=== PATIENT | female | born 1990 | race American Indian/Alaskan Native ===

== ENCOUNTER 2016-11-06 22:46 | Emergency (ER) | payer MEDICAID ==
[2016-11-07] MEDS ORDERED: MOTRIN PO ONE (04:18)
--- NOTE | 2016-11-07 04:19 | Emergency Department Report ---
- General Chief Complaint: Laceration/Recheck/Suture Stated Complaint: RT FOOT STEPPED ON GLASS Time Seen by Provider: 11/07/16 04:08 Source: patient Mode of arrival: Ambulatory Limitations: No Limitations - History of Present Illness Initial Comments: This is a 26-year-old female well-nourished with nontoxic or ill in appearance that presents with a laceration to the right plantar foot status post stepping on a broken glass that occurred yesterday at 8 PM. Patient stated after that her current estimate on glass she cleaned the area with iodine and wrapped her foot and dressing. Patient and her boyfriend took the whole glass particle out of her foot and stated that the glass is able to get put back together. Patient denies any foreign body objects to her right foot. Patient stated minimal bleeding. Denies any numbness, tingling, unable to move her extremities , fever, chills, chest pain, shortness of breath, joint swelling, abdominal pain , headache or dizziness. Patient states allergies to codeine and IV dye. Patient denies any significant past medical history. Patient stated this does not know last tetanus shot. -: Gradual, days(s) (1) Location: other (right plantar foot) Extremity Location: Right: Foot (plantar) Place: home Patient Tetanus UTD: No Context: accidental Associated Symptoms: pain. denies: loss of feeling/numbness, suspect foreign body present, unable to move injured part, weakness followed by dizziness, nausea/vomiting, fever - Related Data Home Medications Medication Instructions Recorded Confirmed Last Taken Antipyrine-Benzocaine Otic Leti 3 drops OTIC Q2HR 09/13/14 09/13/14 1 Day Ago Ciprodex Otic 0.3%-0.1% 4 drops OTIC Q12HR 09/13/14 09/13/14 1 Day Ago Ciprofloxacin HCl 500 mg pe PO BID 09/13/14 09/13/14 1 Day Ago Previous Rx's Medication Instructions Recorded Last Taken Type Cephalexin [Keflex] 500 mg PO Q8HR 5 Days 11/07/16 Unknown Rx Ibuprofen [Motrin 600 MG tab] 600 mg PO Q8H PRN #15 tablet 11/07/16 Unknown Rx Allergies Allergy/AdvReac Type Severity Reaction Status Date / Time Iodinated Contrast Media - Allergy Anaphylaxis Verified 11/07/16 00:26 IV Dye codeine AdvReac Hives Verified 06/16/14 20:16 ED Review of Systems ROS: Stated complaint: RT FOOT STEPPED ON GLASS Other details as noted in HPI Constitutional: denies: chills, fever Eyes: denies: eye pain, eye discharge, vision change ENT: denies: ear pain, throat pain Respiratory: denies: cough, shortness of breath, wheezing Cardiovascular: denies: chest pain, palpitations Endocrine: no symptoms reported Gastrointestinal: denies: abdominal pain, nausea, diarrhea Genitourinary: denies: urgency, dysuria, discharge Musculoskeletal: denies: back pain, joint swelling, arthralgia Skin: denies: rash, lesions Neurological: denies: headache, weakness, paresthesias Psychiatric: denies: anxiety, depression Hematological/Lymphatic: denies: easy bleeding, easy bruising ED Past Medical Hx - Past Medical History Previous Medical History?: Yes Hx Hypertension: No Hx CVA: No Hx Heart Attack/AMI: No Hx Congestive Heart Failure: No Hx Diabetes: No Hx Deep Vein Thrombosis: No Hx Pulmonary Embolism: No Hx GERD: No Hx Liver Disease: No Hx Renal Disease: No Hx Sickle Cell Disease: No Hx Arthritis: No Hx Headaches / Migraines: No Hx Seizures: No Hx Kidney Stones: No Hx Psychiatric Treatment: No Hx Asthma: No Hx COPD: No Hx Tuberculosis: No Hx Dementia: No Hx HIV: No Additional medical history: Anemia - Surgical History Hx Coronary Stent: No Hx Open Heart Surgery: No Hx Pacemaker: No Hx Internal Defibrillator: No Hx Cholecystectomy: No Hx Appendectomy: No Hx Breast Surgery: No Additional Surgical History: left eye surgery - Social History Smoking Status: Never Smoker - Medications Home Medications: Home Medications Medication Instructions Recorded Confirmed Last Taken Type Antipyrine-Benzocaine Otic Leti 3 drops OTIC Q2HR 09/13/14 09/13/14 1 Day Ago History Ciprodex Otic 0.3%-0.1% 4 drops OTIC Q12HR 09/13/14 09/13/14 1 Day Ago History Ciprofloxacin HCl 500 mg pe PO BID 09/13/14 09/13/14 1 Day Ago History Cephalexin [Keflex] 500 mg PO Q8HR 5 Days 11/07/16 Unknown Rx Ibuprofen [Motrin 600 MG tab] 600 mg PO Q8H PRN #15 tablet 11/07/16 Unknown Rx ED Physical Exam - General Limitations: No Limitations General appearance: alert, in no apparent distress - Head Head exam: Present: atraumatic, normocephalic, normal inspection - Eye Eye exam: Present: normal appearance, PERRL, EOMI. Absent: scleral icterus, conjunctival injection, nystagmus, periorbital swelling, periorbital tenderness Pupils: Present: normal accommodation - ENT ENT exam: Present: normal exam, normal orophraynx, mucous membranes moist, TM's normal bilaterally, normal external ear exam - Neck Neck exam: Present: normal inspection, full ROM. Absent: tenderness, meningismus, lymphadenopathy, thyromegaly - Respiratory Respiratory exam: Present: normal lung sounds bilaterally. Absent: respiratory distress, wheezes, rales, rhonchi, stridor, chest wall tenderness, accessory muscle use, decreased breath sounds, prolonged expiratory - Cardiovascular Cardiovascular Exam: Present: regular rate, normal rhythm, normal heart sounds. Absent: bradycardia, tachycardia, irregular rhythm, systolic murmur, diastolic murmur, rubs, gallop - GI/Abdominal GI/Abdominal exam: Present: soft, normal bowel sounds. Absent: distended, tenderness, guarding, rebound, rigid, diminished bowel sounds - Extremities Exam Extremities exam: Present: normal inspection, full ROM, normal capillary refill , calf tenderness. Absent: tenderness, pedal edema, joint swelling - Expanded Lower Extremity Exam Right Hip exam: Present: normal inspection, full ROM. Absent: tenderness, swelling, abrasion Upper Leg exam: Present: normal inspection, full ROM. Absent: tenderness, swelling, abrasion, laceration Knee exam: Present: normal inspection, full ROM. Absent: tenderness, swelling, abrasion, laceration Lower Leg exam: Present: normal inspection, full ROM. Absent: tenderness, swelling, abrasion, laceration, ecchymosis Ankle exam: Present: normal inspection, full ROM. Absent: tenderness, swelling , abrasion, laceration, ecchymosis, deformity, crepidus, dislocation, erythema, anterior draw sign Foot/Toe exam: Present: normal inspection, full ROM, tenderness, laceration (3 cm superficial to plantar foot). Absent: swelling, abrasion, ecchymosis, deformity, crepidus, dislocation, erythema, amputation, foreign body, calcaneal tenderness, tenderness at base of 5th metatarsal, nail avulsion, subungual hematoma Neuro vascular tendon exam: Present: no vascular compromise Gait: Positive: observed and normal, observed and limited by pain 1 - 3 cm laceration superficial - Back Exam Back exam: Present: normal inspection, full ROM. Absent: tenderness, CVA tenderness (R), CVA tenderness (L), muscle spasm, paraspinal tenderness, vertebral tenderness, rash noted - Neurological Exam Neurological exam: Present: alert, oriented X3, CN II-XII intact, normal gait - Psychiatric Psychiatric exam: Present: normal affect, normal mood - Skin Skin exam: Present: warm, dry, intact, normal color. Absent: rash ED Course Vital Signs 11/06/16 11/07/16 23:20 00:29 Temperature 98.8 F 98.8 F Pulse Rate 112 H 112 H Respiratory 22 20 Rate Blood Pressure 113/71 Blood Pressure 113/71 [Right] O2 Sat by Pulse 99 99 Oximetry - Reevaluation(s) Reevaluation #1: 11/07/16 06:01 Patient is resting well with no sign of distress. - Laceration /Wound Repair Right Foot Wound Location: lower extremity (plantar foot) Wound Length (cm): 3 Wound's Depth, Shape: superficial Wound Explored: clean Irrigated w/ Saline (ccs): 30 Betadine Prep?: Yes Anesthesia: 0.5% Sensorcaine (with epi 1-200,000) Volume Anesthetic (ccs): 6 Wound Debrided: minimal Wound Repaired With: sutures Suture Size/Type: 5:0, nylon Number of Sutures: 9 Layer Closure?: No Sterile Dressing Applied?: Yes Progress: Under sterile field, I used Betadine to prep the wound area. I used 30 mL to flush out the wound. I injected 6 mL of 0.5% lidocaine with epi 1:200,000 with 25-gauge 5/8 needle. I then used a 5-0 Prolene to close the superficial wound. Number stitches 9. A sterile dressing has been applied to the area with tape. Patient did well. No signs of distress. No complications noted. Patient was instructed to return in 7 days to ED to suture removal. ED Medical Decision Making - Medical Decision Making ED course: This is a 26-year-old female that presents with 3 cm laceration to right plantar foot. 1- after my physical exam, an x-ray has been obtained in the ED to rule out any foreign body. 2- patient received ibuprofen 600 mg by mouth in the ED. 3- under sterile field, the laceration has been sutured with 4-0 Prolene. 4- patient was instructed to return in 7 days for suture removal. 5- patient received ibuprofen 600 mg by mouth and Keflex at this discharge. 6- patient was instructed to follow-up with her primary care doctor in 3-5 days or if symptoms worsen such as pus, drainage, fever, chills, numbness or tingling reported back to emergency room as soon as possible. 7- at time time of discharge, the patient does not seem toxic or ill in appearance. No acute signs of distress noted. Patient agrees to discharge treatment plan of care. No further questions noted by the patient. 8- patient receives tetanus booster. Critical care attestation.: If time is entered above; I have spent that time in minutes in the direct care of this critically ill patient, excluding procedure time. ED Disposition Clinical Impression: Laceration Disposition: DISCHARGED TO HOME OR SELFCARE Is pt being admited?: No Does the pt Need Aspirin: No Condition: Stable Instructions: Ibuprofen (By mouth), Suture Care (ED), Laceration (ED) Additional Instructions: Return to the emergency room in 7 days for suture removal. Follow-up with her primary care doctor in 3-5 days or if symptoms worsen such as pus, drainage, numbness, tingling, nausea vomiting report back to emergency room as soon as possible Take full course of antibiotics as prescribed and take ibuprofen as needed for pain. Prescriptions: Cephalexin [Keflex] 500 mg PO Q8HR 5 Days Ibuprofen [Motrin 600 MG tab] 600 mg PO Q8H PRN #15 tablet PRN Reason: Pain Referrals: PRIMARY MD MISBAH [Primary Care Provider] - 3-5 Days [facility] [Outside] - 3-5 Days [facility] [Outside] - 3-5 Days LACHELLE BECERRA MD [Staff Physician] - 3-5 Days Forms: Work/School Release Form(ED)
[2016-11-07] MEDS ORDERED: MARCAINE-EPI 0.5%-1:200,000 INFILTRATI ONE (04:25)
[2016-11-07] MEDS ORDERED: BOOSTRIX IM ONE (04:25)
[2016-11-07] MEDS ORDERED: NACL 0.9% 500 ML IR ONE ×2 (04:34→04:38)
[2016-11-07] MEDS ORDERED: NACL 0.9% IR ONE (04:44)
--- NOTE | 2016-11-07 04:46 | XRay Report ---
FINAL REPORT PROCEDURE: XR FOOT 3 RT TECHNIQUE: RIGHT foot radiographs, AP, lateral, and oblique views. CPT 91636 HISTORY: stepped in glass, right foot pain COMPARISON: No prior studies are available for comparison. FINDINGS: Fracture (s) and/or Dislocation(s): None . Alignment: Normal . Joint space(s): Normal . Soft tissues: Mild soft tissue swelling over the midfoot plantar surface.. Bone mineralization: Normal . Foreign bodies: None . Calcaneal spurring: None . IMPRESSION: No acute fracture or dislocation. Mild soft tissue swelling along the plantar surface midfoot. No radiopaque foreign object..
[2016-11-07 06:05] VITALS: BP 115/73
== END 2016-11-07 07:13 | disposition home or self-care (01) ==
LOC: ED 22:46
DX: S91.311A Laceration without foreign body, right foot, initial encounter (principal); Z88.5 Allergy status to narcotic agent; Z88.8 Allergy status to other drugs, medicaments and biological substances; W25.XXXA Contact with sharp glass, initial encounter; Y93.89 Activity, other specified; Y99.8 Other external cause status; Y92.89 Other specified places as the place of occurrence of the external cause
CPT/HCPCS: 90471; 90715

== ENCOUNTER 2016-11-18 15:11 | Emergency (ER) | payer MEDICAID ==
--- NOTE | 2016-11-18 18:39 | Emergency Department Report ---
ED Recheck [facility] - General Chief Complaint: Laceration/Recheck/Suture Stated Complaint: SUTURES REMOVED Time Seen by Provider: 11/18/16 18:37 Source: patient Mode of arrival: Ambulatory Limitations: No Limitations - Related Data Home Medications Medication Instructions Recorded Confirmed Last Taken Antipyrine-Benzocaine Otic Leti 3 drops OTIC Q2HR 09/13/14 09/13/14 1 Day Ago Ciprodex Otic 0.3%-0.1% 4 drops OTIC Q12HR 09/13/14 09/13/14 1 Day Ago Ciprofloxacin HCl 500 mg pe PO BID 09/13/14 09/13/14 1 Day Ago Previous Rx's Medication Instructions Recorded Last Taken Type Cephalexin [Keflex] 500 mg PO Q8HR 5 Days 11/07/16 Unknown Rx Ibuprofen [Motrin 600 MG tab] 600 mg PO Q8H PRN #15 tablet 11/07/16 Unknown Rx Allergies Allergy/AdvReac Type Severity Reaction Status Date / Time Iodinated Contrast Media - Allergy Anaphylaxis Verified 11/18/16 16:30 IV Dye codeine AdvReac Hives Verified 11/18/16 16:30 ED Review of Systems ROS: Stated complaint: SUTURES REMOVED Other details as noted in HPI ED Past Medical Hx - Past Medical History Hx Hypertension: No Hx CVA: No Hx Heart Attack/AMI: No Hx Congestive Heart Failure: No Hx Diabetes: No Hx Deep Vein Thrombosis: No Hx Pulmonary Embolism: No Hx GERD: No Hx Liver Disease: No Hx Renal Disease: No Hx Sickle Cell Disease: No Hx Arthritis: No Hx Headaches / Migraines: No Hx Seizures: No Hx Kidney Stones: No Hx Psychiatric Treatment: No Hx Asthma: No Hx COPD: No Hx Tuberculosis: No Hx Dementia: No Hx HIV: No Additional medical history: Anemia - Surgical History Hx Coronary Stent: No Hx Open Heart Surgery: No Hx Pacemaker: No Hx Internal Defibrillator: No Hx Cholecystectomy: No Hx Appendectomy: No Hx Breast Surgery: No Additional Surgical History: left eye surgery - Social History Smoking Status: Never Smoker - Medications Home Medications: Home Medications Medication Instructions Recorded Confirmed Last Taken Type Antipyrine-Benzocaine Otic Leti 3 drops OTIC Q2HR 09/13/14 09/13/14 1 Day Ago History Ciprodex Otic 0.3%-0.1% 4 drops OTIC Q12HR 09/13/14 09/13/14 1 Day Ago History Ciprofloxacin HCl 500 mg pe PO BID 09/13/14 09/13/14 1 Day Ago History Cephalexin [Keflex] 500 mg PO Q8HR 5 Days 11/07/16 Unknown Rx Ibuprofen [Motrin 600 MG tab] 600 mg PO Q8H PRN #15 tablet 11/07/16 Unknown Rx ED Physical Exam - General Limitations: No Limitations ED Course Vital Signs 11/18/16 16:30 Temperature 98.8 F Pulse Rate 69 Respiratory 18 Rate Blood Pressure 126/80 O2 Sat by Pulse 100 Oximetry Critical care attestation.: If time is entered above; I have spent that time in minutes in the direct care of this critically ill patient, excluding procedure time. ED Disposition Condition: Stable Referrals: PRIMARY CARE, [Primary Care Provider] - 3-5 Days
--- NOTE | 2016-11-18 18:45 | Emergency Department Report ---
Suture/Staple Removal - HPI Chief Complaint: Laceration/Recheck/Suture Stated Complaint: SUTURES REMOVED Time Seen by Provider: 11/18/16 18:37 When Sutures or Rittman Placed: 11-14 Days Ago Wound Location: sole of R foot ED Review of Systems ROS: Stated complaint: SUTURES REMOVED Other details as noted in HPI Comment: All other systems reviewed and negative Constitutional: denies: chills, fever Eyes: denies: eye pain, eye discharge, vision change ENT: denies: ear pain, throat pain Respiratory: denies: cough, shortness of breath, wheezing Cardiovascular: denies: chest pain, palpitations Endocrine: no symptoms reported Gastrointestinal: denies: abdominal pain, nausea, diarrhea Genitourinary: denies: urgency, dysuria, discharge Musculoskeletal: denies: back pain, joint swelling, arthralgia Skin: denies: rash, lesions Neurological: denies: headache, weakness, paresthesias Psychiatric: denies: anxiety, depression Hematological/Lymphatic: denies: easy bleeding, easy bruising ED Past Medical Hx - Past Medical History Hx Hypertension: No Hx CVA: No Hx Heart Attack/AMI: No Hx Congestive Heart Failure: No Hx Diabetes: No Hx Deep Vein Thrombosis: No Hx Pulmonary Embolism: No Hx GERD: No Hx Liver Disease: No Hx Renal Disease: No Hx Sickle Cell Disease: No Hx Arthritis: No Hx Headaches / Migraines: No Hx Seizures: No Hx Kidney Stones: No Hx Psychiatric Treatment: No Hx Asthma: No Hx COPD: No Hx Tuberculosis: No Hx Dementia: No Hx HIV: No Additional medical history: Anemia - Surgical History Hx Coronary Stent: No Hx Open Heart Surgery: No Hx Pacemaker: No Hx Internal Defibrillator: No Hx Cholecystectomy: No Hx Appendectomy: No Hx Breast Surgery: No Additional Surgical History: left eye surgery - Social History Smoking Status: Never Smoker - Medications Home Medications: Home Medications Medication Instructions Recorded Confirmed Last Taken Type Antipyrine-Benzocaine Otic Leti 3 drops OTIC Q2HR 09/13/14 09/13/14 1 Day Ago History Ciprodex Otic 0.3%-0.1% 4 drops OTIC Q12HR 09/13/14 09/13/14 1 Day Ago History Ciprofloxacin HCl 500 mg pe PO BID 09/13/14 09/13/14 1 Day Ago History Cephalexin [Keflex] 500 mg PO Q8HR 5 Days 11/07/16 Unknown Rx Ibuprofen [Motrin 600 MG tab] 600 mg PO Q8H PRN #15 tablet 11/07/16 Unknown Rx Suture Removal Exam - Exam General: Vital signs noted. No distress. Alert and acting appropriately. Wound: No Pathologic Erythema, No Tenderness, No Drainage, No Pus, No Wound Dehiscence Other Systems: All other systems reviewed and are unremarkable. ED Course Vital Signs 11/18/16 16:30 Temperature 98.8 F Pulse Rate 69 Respiratory 18 Rate Blood Pressure 126/80 O2 Sat by Pulse 100 Oximetry - Reevaluation(s) Reevaluation #1: 11/18/16 18:44 NAD, stable for d/c. ED Recheck MDM - Differential Diagnosis Wound Recheck, Suture/Staple Removal - Medical Decision Making Sutures removed. NAD, stable for d/c. Critical care attestation.: If time is entered above; I have spent that time in minutes in the direct care of this critically ill patient, excluding procedure time. ED Disposition Clinical Impression: Visit for suture removal Disposition: DC-01 TO HOME OR SELFCARE Is pt being admited?: No Condition: Good Instructions: Suture Removal (ED) Referrals: PRIMARY CARE, [Primary Care Provider] - 3-5 Days Time of Disposition: 18:45
[2016-11-18 20:47] VITALS: BP 125/71
== END 2016-11-18 20:47 | disposition home or self-care (01) ==
LOC: ED 15:11
DX: Z48.02 Encounter for removal of sutures (principal); Z53.21 Procedure and treatment not carried out due to patient leaving prior to being seen by health care provider